=== PATIENT | female | born 1995 | race Caucasian/White ===

== ENCOUNTER 2017-12-02 20:56 | Emergency (ER) | payer OTHER ==
[~2017-12-02] VITALS: Ht 177.8 cm; Wt 90.7 kg
[~2017-12-02 20:56] MED LIST: ATARAX25 MG PO; BIRTH CONTROL1 EAC1 PO; KEFLEX500 MG PO; LOMOTIL 0.025 M1 TA1 PO; MACROBID100 M1 PO; MOTRIN800 MG PO; OMEPRAZOLE20 MG PO; PREDNICOT20 MG PO; PREDNISONE10 MG PO; PRILOSEC10 MG PO; PROVENTIL0.09 MG/A1 INH; SYNTHROID0.05 MG PO; VITAMIN D1000 IU PO; ZITHROMAX250 MG PO; ZOFRAN4 MG PO
[2017-12-02] MEDS ORDERED: IBU800 MG PO (21:20)
[2017-12-02] MEDS ORDERED: TYLENOL325 M1 PO (21:20)
[2017-12-02] MEDS ORDERED: CLINDAMYCIN150 MG PO (21:20)
[2017-12-02] MEDS ORDERED: AMOXICILLI400 MG/51 PO (21:26)
[2017-12-02] MEDS ORDERED: [UNRECOGNIZED DRUG - REMARK] PO (21:26)
== END 2017-12-02 23:23 | disposition home or self-care (01) ==
LOC: ED 20:56
DX: K02.9 Dental caries, unspecified (principal); K04.7 Periapical abscess without sinus; Z79.899 Other long term (current) drug therapy

== ENCOUNTER 2019-04-25 17:37 | Emergency (ER) | payer MEDICARE ==
[~2019-04-25] VITALS: Ht 177.8 cm; Wt 90.7 kg
[~2019-04-25 17:37] MED LIST changes: +AMOXICILLI400 MG/51 PO; +CEPHALEXIN250 MG/5 M PO; +CLINDAMYCIN150 MG PO; +IBU800 MG PO; +NORCO 5-325 TA1 EACH PO; +TYLENOL325 M1 PO; +[UNRECOGNIZED DRUG - REMARK] PO
[2019-04-25] MEDS ORDERED: AMOXICILLI400 MG/51 PO (17:50)
== END 2019-04-25 18:05 | disposition home or self-care (01) ==
LOC: ED 17:37
DX: K04.7 Periapical abscess without sinus (principal); K02.9 Dental caries, unspecified; Z93.2 Ileostomy status; Z79.2 Long term (current) use of antibiotics